=== PATIENT | male | born 1985 | race Caucasian/White ===

== ENCOUNTER 2018-10-15 19:33 | Emergency (ER) | payer MEDICAID, MEDICARE ==
[~2018-10-15] VITALS: Ht 180.3 cm; Wt 84.6 kg
[2018-10-15 20:07] VITALS: BP 156/80; PULSE 86; RESP 18; Ht 180.3 cm; Wt 84.6 kg
== END 2018-10-15 22:58 | disposition left against medical advice (07) ==
LOC: FTE 19:33
DX: Z53.21 Procedure and treatment not carried out due to patient leaving prior to being seen by health care provider (principal)

== ENCOUNTER 2018-12-05 15:09 | Emergency (ER) | payer MEDICARE, OTHER ==
[~2018-12-05] VITALS: Wt 83.9 kg
[2018-12-05 15:12] VITALS: BP 130/89; PULSE 85; RESP 18
[2018-12-05] MEDS ORDERED: NAPR-985 PO (15:36)
[2018-12-05] MEDS ORDERED: ELIM TOP (15:36)
[2018-12-05] MEDS ORDERED: HYDR-4011 PO (15:36)
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
== END 2018-12-05 15:56 | disposition home or self-care (01) ==
LOC: FTE 15:09
DX: M54.5 Low back pain (principal); B86 Scabies; Z87.891 Personal history of nicotine dependence
CPT/HCPCS: 99283

== ENCOUNTER 2018-12-12 09:47 | Emergency (ER) | payer MEDICARE, OTHER ==
[~2018-12-12] VITALS: Ht 177.8 cm; Wt 84.0 kg
[~2018-12-12 09:47] MED LIST: ELIM TOP; HYDR-4011 PO; NAPR-985 PO
[2018-12-12 09:49] VITALS: BP 156/98; PULSE 90; RESP 18; Ht 177.8 cm; Wt 84.0 kg
[2018-12-12] MEDS ORDERED: ACETAMINOPHEN 500 MG TAB PO STA (10:20)
--- NOTE | 2018-12-12 10:23 | ERD ---
ER Documentation Chief Complaint Chief Complaint CHRONIC BACK PAIN , B/L KNEE PAIN HPI Patient is a 33 years old male presented to clinic for refills for his scabies medication saying that he lost it. Patient was seen and evaluated on 12/05/2018 and was discharged home with permethrin, Naprosyn, and [place]. Patient states that he does not want refills for permethrin but he specifically wants refills for his chronic lower back pain. Lost the [place] and is requesting refills ROS All systems reviewed and are negative except as per history of present illness. Medications Home Meds Active Scripts Permethrin* (Elimite*) 5% Cr, 1 APPLIC TOP ONCE, #2 TUB Prov:ROOSEVELT MARTE PA-C 12/05/18 Naproxen* (Naprosyn*) 500 Mg Tablet, 500 MG PO BID PRN for PAIN AND/OR INFLAMMATION, #30 TAB Prov:ROOSEVELT MARTE PA-C 12/05/18 Hydrocodone/Acetaminophen ([place] 5-325 Tablet) 1 Each Tablet, 1 TAB PO Q6H PRN for PAIN, #3 TAB Prov:ROOSEVELT MARTE PA-C 12/05/18 Allergies Allergies: Coded Allergies: No Known Allergy (Unverified , 12/09/13) PMhx/Soc History of Surgery: No Anesthesia Reaction: No Hx Neurological Disorder: No Hx Respiratory Disorders: No Hx Cardiac Disorders: No Hx Psychiatric Problems: No Hx Miscellaneous Medical Probl: No Hx Alcohol Use: No Hx Substance Use: No Hx Tobacco Use: Yes Smoking Status: Current every day smoker Physical Exam Vitals Vital Signs Date Temp Pulse Resp B/P (MAP) Pulse Ox O2 O2 Flow FiO2 Time Delivery Rate 12/12/18 98.1 90 18 156/98 98 09:49 (117) Physical Exam Const: No acute distress Head: Atraumatic Eyes: Normal Conjunctiva ENT: Normal External Ears, Nose and Mouth. Neck: Full range of motion. No meningismus. Resp: Clear to auscultation bilaterally Cardio: Regular rate and rhythm, no murmurs Abd: Soft, non tender, non distended. Normal bowel sounds Skin: No petechiae or rashes Back: No midline or flank tenderness Ext: No cyanosis, or edema Neur: Awake and alert Psych: Normal Mood and Affect Results 24 hrs Current Medications Medications Dose Sig/Chelita Start Time Status Last (Trade) Ordered Route PRN Stop Time Admin Dose Reason Admin 1,000 mg ONCE STAT 12/12/18 DC Acetaminophen PO 10:20 (Tylenol 12/12/18 10:21 Tab) Procedures/MDM Patient was informed that provider will give Tylenol for his chronic pain, however, patient states that he does not want any Tylenol notes that his codeine. Patient is specifically requesting [place] and was denied by provider. Patient states that he no longer wishes to be evaluated in the clinic for his pain state that he would leave and come back to see provider who saw him during last visit. Patient States that he was given [place] by the provider during last visit and states that he will be back to have her/her evaluate him. Patient refused further workup and left the hospital after provider denies [place] refills. Departure Diagnosis: Primary Impression: Encounter for medication refill Additional Impressions: Chronic back pain Back pain location: back pain in unspecified location Back pain laterality: unspecified Qualified Codes: M54.9 - Dorsalgia, unspecified; G89.29 - Other chronic pain Scabies Condition: Fair Patient Instructions: Taking Medicine Safely Additional Instructions: Call your primary care doctor TOMORROW for an appointment during the next 1-2 days.See the doctor sooner or return here if your condition worsens before your appointment time. CORINE DUPONT PA-C December 12, 2018 10:23
== END 2018-12-12 10:29 | disposition home or self-care (01) ==
LOC: FTE 09:47
DX: M54.5 Low back pain (principal); B86 Scabies; F17.210 Nicotine dependence, cigarettes, uncomplicated; Z76.0 Encounter for issue of repeat prescription
CPT/HCPCS: 99282

== ENCOUNTER 2018-12-29 17:28 | Emergency (ER) | payer MEDICARE, OTHER ==
[~2018-12-29] VITALS: Ht 180.3 cm; Wt 82.4 kg
[2018-12-29 17:57] VITALS: Ht 180.3 cm; Wt 82.4 kg
[2018-12-29] MEDS ORDERED: KETOROLAC 60 MG INJ IM STA (18:45)
--- NOTE | 2018-12-29 18:55 | ERD ---
ER Documentation Chief Complaint Chief Complaint rashes all over the body, painful and itchy HPI Patient is a 33 years old male with PMHx of substance abuse presenting to the clinic for back pain, skin infection, and pruritus. Patient reports losing all of his medication and admits to using Heroin 1 hours ago. Patient states that his pain is rated 10/10. Patient denies fever, chills, night sweats, abnormal movement, trembling, hallucination. Patient was seen on 12/12/18 and was denied [place]. ROS All systems reviewed and are negative except as per history of present illness. Medications Home Meds Active Scripts Acetaminophen* (Tylophen*) 500 Mg Capsule, 500 MG PO Q6H PRN for PAIN for 7 Days, TAB Prov:CORINE DUPONT PA-C 12/29/18 Mupirocin* (Bactroban*) 2% -22 Gram Oint...g., 1 APPLIC TOP BID for 7 Days, EA Prov:CORINE DUPONT PA-C 12/29/18 Permethrin* (Elimite*) 5% Cr, 1 APPLIC TOP ONCE, #2 TUB Prov:ROOSEVELT MARTE PA-C 12/05/18 Naproxen* (Naprosyn*) 500 Mg Tablet, 500 MG PO BID PRN for PAIN AND/OR INFLAMMATION, #30 TAB Prov:ROOSEVELT MARTE PA-C 12/05/18 Hydrocodone/Acetaminophen ([place] 5-325 Tablet) 1 Each Tablet, 1 TAB PO Q6H PRN for PAIN, #3 TAB Prov:ROOSEVELT MARTE PA-C 12/05/18 Allergies Allergies: Coded Allergies: No Known Allergy (Unverified , 12/09/13) PMhx/Soc History of Surgery: No Anesthesia Reaction: No Hx Neurological Disorder: No Hx Respiratory Disorders: No Hx Cardiac Disorders: No Hx Psychiatric Problems: No Hx Miscellaneous Medical Probl: No Hx Alcohol Use: No Hx Substance Use: Yes (HEROINE) Hx Tobacco Use: Yes Smoking Status: Current every day smoker Physical Exam Vitals Vital Signs Date Temp Pulse Resp B/P (MAP) Pulse Ox O2 O2 Flow FiO2 Time Delivery Rate 12/29/18 98.3 95 18 142/88 95 19:25 (106) 12/29/18 98.7 104 20 143/62 96 17:57 (89) Physical Exam Const: No acute distress. Patient seems under the influence of substance abuse. Head: Atraumatic. Eyes: Normal Conjunctiva Resp: Clear to auscultation bilaterally Cardio: Regular rate and rhythm, no murmurs Abd: Soft, non tender, non distended. Normal bowel sounds Skin: Multiple skin perforation with surrounding erythema on bilateral arms and lower extremities. Back: No midline or flank tenderness Ext: No cyanosis, or edema Neur: Awake and alert Psych: Normal Mood and Affect Results 24 hrs Current Medications Medications Dose Sig/Chelita Start Time Status Last (Trade) Ordered Route PRN Stop Time Admin Dose Reason Admin Ceftriaxone 1 gm ONCE ONCE 12/29/18 DC 12/29/18 Sodium IM 19:00 19:03 (Rocephin) 12/29/18 19:01 Lidocaine 20 ml ONCE ONCE 12/29/18 DC 12/29/18 (Xylocaine SC 19:00 19:03 1% (Mdv) 20 12/29/18 19:01 ml) Ketorolac 60 mg ONCE STAT 12/29/18 DC 12/29/18 Tromethamine IM 18:45 19:03 (Toradol) 12/29/18 18:47 Procedures/MDM Patient was seen and evaluated for back pain, cellulitis, and pruritus while under the influence (Heroin). Cellulitis on bilateral upper and lower extremities most likely from needle injection (high suspicion of heroin). Patient was given Rocephin 1G and Toradol and will be discharged with Mupirocin as per Dr. Mart's recommendation. color worker contacted for patient. Patient is stable and ready for discharge. Departure Diagnosis: Primary Impression: Substance abuse Additional Impressions: Cellulitis Site of cellulitis: extremity Site of cellulitis of extremity: upper extremity Laterality: unspecified laterality Qualified Codes: L03.119 - Cellulitis of unspecified part of limb Rash Patient Instructions: Self-Care for Skin Rashes Referrals: [facility] Additional Instructions: Patient advised to return to the ED immediately for new or worsening symptoms. Patient advised to follow up with primary care provider in the next 24-48 hours. Patient verbalized understanding and agrees with treatment plan and course of action. If patient has no primary care they may follow up with [facility] + [address] [address] or [facility] [address] [place] [address] or [facility] [address] [place] [address] CORINE DUPONT PA-C Dec 29, 2018 18:55
[2018-12-29] MEDS ORDERED: ACET500C5 PO (18:56)
[2018-12-29] MEDS ORDERED: MUPI22OI2 TOP (18:56)
[2018-12-29] MEDS ORDERED: CEFTRIAXONE 1 GM INJ IM ONE (19:00)
[2018-12-29] MEDS ORDERED: LIDOCAINE 1% (MDV) 20 ML INJ SC ONE (19:00)
[2018-12-29 19:25] VITALS: BP 142/88; PULSE 95; RESP 18
== END 2018-12-29 19:32 | disposition home or self-care (01) ==
LOC: FTE 17:28
DX: L03.116 Cellulitis of left lower limb (principal); L03.115 Cellulitis of right lower limb; L03.114 Cellulitis of left upper limb; L03.113 Cellulitis of right upper limb; F19.10 Other psychoactive substance abuse, uncomplicated; F17.210 Nicotine dependence, cigarettes, uncomplicated
CPT/HCPCS: 96372; 99284; J0696; J1885

== ENCOUNTER 2019-01-27 04:27 | Emergency (ER) | payer MEDICARE, OTHER ==
[~2019-01-27] VITALS: Ht 180.3 cm; Wt 77.6 kg
[~2019-01-27 04:27] MED LIST changes: +ACET500C5 PO; +MUPI22OI2 TOP
[2019-01-27 04:42] VITALS: BP 124/77; PULSE 78; RESP 17; Ht 180.3 cm; Wt 77.6 kg
[2019-01-27] MEDS ORDERED: NAPR-985 PO (06:15)
--- NOTE | 2019-01-29 19:38 | ERD ---
ER Documentation Chief Complaint Chief Complaint RIGHT ARM WEAKNESS X1 WK, BACK PAIN TODAY. HPI 33-year-old male presenting to the emergency department complaining of right arm weakness intermittently for the past 1 week. He states his wrist dropped after injecting heroin in his right upper extremity. Symptoms have worsened. They are constant. He reports associated pain which is moderate to severe. He tried no medication for relief of symptoms. He denies any other symptoms currently. ROS All systems reviewed and are negative except as per history of present illness. Medications Home Meds Active Scripts Naproxen* (Naprosyn*) 500 Mg Tablet, 500 MG PO BID PRN for PAIN AND/OR INFLAMMATION, #30 TAB Prov:CHRISTOPHER PETER PA-C 01/27/19 Acetaminophen* (Tylophen*) 500 Mg Capsule, 500 MG PO Q6H PRN for PAIN for 7 Days, TAB Prov:CORINE DUPONT PA-C 12/29/18 Mupirocin* (Bactroban*) 2% -22 Gram Oint...g., 1 APPLIC TOP BID for 7 Days, EA Prov:CORINE DUPONT PA-C 12/29/18 Permethrin* (Elimite*) 5% Cr, 1 APPLIC TOP ONCE, #2 TUB Prov:ROOSEVELT MARTE PA-C 12/05/18 Naproxen* (Naprosyn*) 500 Mg Tablet, 500 MG PO BID PRN for PAIN AND/OR INFLAMMATION, #30 TAB Prov:ROOSEVELT MARTE PA-C 12/05/18 Hydrocodone/Acetaminophen ([place] 5-325 Tablet) 1 Each Tablet, 1 TAB PO Q6H PRN for PAIN, #3 TAB Prov:ROOSEVELT MARTE PA-C 12/05/18 Allergies Allergies: Coded Allergies: No Known Allergy (Unverified , 01/27/19) PMhx/Soc History of Surgery: No Anesthesia Reaction: No Hx Neurological Disorder: No Hx Respiratory Disorders: No Hx Cardiac Disorders: No Hx Psychiatric Problems: No Hx Miscellaneous Medical Probl: No Hx Alcohol Use: No Hx Substance Use: Yes (HEROINE) Hx Tobacco Use: Yes Smoking Status: Current every day smoker FmHx Family History: No diabetes Physical Exam Vitals Vital Signs Date Temp Pulse Resp B/P (MAP) Pulse Ox O2 O2 Flow FiO2 Time Delivery Rate 7/11/19 98.2 78 17 124/77 98 04:42 (93) Physical Exam Const: No acute distress Head: Atraumatic Eyes: Normal Conjunctiva ENT: Normal External Ears, Nose and Mouth. Neck: Full range of motion. No meningismus. Resp: Clear to auscultation bilaterally Cardio: Regular rate and rhythm, no murmurs Abd: Soft, non tender, non distended. Normal bowel sounds Skin: No petechiae or rashes Back: No midline or flank tenderness Ext: No cyanosis, or edema. Wrist drop noted to the right upper extremity. No erythema, induration, lymphatic streaking, or warmth noted. Patient is neurovascularly intact to the right upper extremity. Neur: Awake and alert Psych: Normal Mood and Affect Results 24 hrs [place] [address] Radiology Main Line: [phone] DIAGNOSTIC IMAGING REPORT Patient: KELVIN RAHMAN : 1985 Age: 33 Sex: M MR #: [id number] DOS: 01/27/19 0000 Ordering MD: CHRISTOPHER PETER PA-C Location: [facility] Room/Bed: PROCEDURE: US right upper extremity Venous. CLINICAL INDICATION: Right upper extremity pain TECHNIQUE: Multiple sonographic images of the right upper extremity venous system was obtained utilizing grayscale, color-flow, compressive sonography and doppler imaging with augmentation. COMPARISON: None. FINDINGS: There is normal compressibility and flow within the right internal jugular vein, subclavian vein, axillary vein, brachial, basilic, cephalic, radial and ulnar veins. IMPRESSION: No sonographic evidence for venous thrombosis of the right upper extremity. RPTAT:AAJJ Physician Queta Date Time Electronically viewed and signed by Physician Queta on 01/27/2019 06:18 BM/ CC: CHRISTOPHER PETER PA-C [phone] Procedures/MDM 33-year-old male presented to the emergency department with signs and symptoms most consistent with right upper extremity wrist drop. Patient has difficulty with extension of the right wrist. Ultrasound of the right upper extremity show no evidence of DVT. Symptoms may be secondary to ligamental, tendon, or nerve damage. The patient was advised to have close follow-up with orthopedic physician as an outpatient. I did discuss this case with attending ED physician, Dr. Christopher Arreola who recommended discharge and outpatient follow- up. Patient was advised to return to the department immediately for any new or worsening or concerning symptoms. He understood and agreed with the diagnosis, plan, need for follow-up, return precautions. Patient was counseled on cessation of IV drug use. Departure Diagnosis: Primary Impression: Wrist drop, right wrist Condition: Fair Patient Instructions: Wrist Drop Referrals: [facility] 7 a.m.- 11 p.m. Every Day of the Week NO APPOINTMENT OR AUTHORIZATION NEEDED [facility] Hours: Mon-Fri 9:00 AM - 5:00 PM Additional Instructions: SPECIALIST: YOU HAVE A MEDICAL CONDITION WHICH REQUIRES YOU TO SEE A SPECIALIST WITHIN THE NEXT 1-2 DAYS. PLEASE FOLLOW UP WITH YOUR PRIMARY PHYSICIAN FOR REFFERAL.IF YOU DO NOT HAVE A PRIMARY CARE PHYSICIAN AND/OR YOU CAN NOT AFFORD TO SEE A PHYSICIAN THE FOLLOWING RESOURCES HAVE BEEN SUPPLIED TO YOU. IT IS YOUR RESPONSIBILITY TO BE SEEN BY THE SPECIALIST: ORTHOPEDICS CHRISTOPHER PETER PA-C Jan 29, 2019 19:37
== END 2019-01-27 06:40 | disposition home or self-care (01) ==
LOC: FTE 04:27
DX: M21.331 Wrist drop, right wrist (principal); F17.210 Nicotine dependence, cigarettes, uncomplicated
CPT/HCPCS: 93971

== ENCOUNTER 2019-03-25 00:12 | Emergency (ER) | payer MEDICARE, OTHER ==
[~2019-03-25] VITALS: Ht 157.5 cm; Wt 71.0 kg
[2019-03-25 00:19] VITALS: Ht 157.5 cm; Wt 71.0 kg
[2019-03-25] MEDS ORDERED: KETAMINE (50 MG/ML) 10 ML VIAL IV ONE (00:30)
[2019-03-25 10:29] VITALS: BP 124/82; PULSE 68; RESP 16
== END 2019-03-25 10:30 | disposition home or self-care (01) ==
LOC: MERGE 00:12 → EDBD 00:12 → E/R 00:12
DX: T40.1X1A Poisoning by heroin, accidental (unintentional), initial encounter (principal); F11.10 Opioid abuse, uncomplicated; F17.210 Nicotine dependence, cigarettes, uncomplicated; Y92.9 Unspecified place or not applicable
CPT/HCPCS: 96372